=== PATIENT | female | born 1980 | race American Indian/Alaskan Native ===

== ENCOUNTER 2020-01-08 09:25 | Emergency (ER) | payer OTHER ==
[2020-01-08] MEDS ORDERED: ASPIRIN 325 MG TAB PO ONE (09:49)
[2020-01-08 10:05] LABS: Basophils % (Auto) 0.3 % (0.0-1.8); Eosinophils % (Auto) 0.8 % (0.0-4.3); Hematocrit 28.2 % (30.3-42.9); Hemoglobin 8.9 gm/dl (10.1-14.3); Lymphocytes # (Auto) 0.8 K/mm3 (1.2-5.4); Lymphocytes % (Auto) 18.7 % (13.4-35.0); Mean Corpuscular HGB Conc 32 % (30-34); Monocytes # (Auto) 0.4 K/mm3 (0.0-0.8); Monocytes % (Auto) 9.3 % (0.0-7.3); Platelet Count 501 K/mm3 (140-440); Red Blood Count 4.48 M/mm3 (3.65-5.03)
[2020-01-08 10:08] LABS: Mean Corpuscular Volume 63 fl (79-97); Red Cell Distribution Width 21.5 % (13.2-15.2)
--- NOTE | 2020-01-08 10:16 | XRay Report ---
CHEST 1 VIEW INDICATION: Chest Pain. COMPARISON: None FINDINGS: SUPPORT DEVICES: None. HEART: Within normal limits. LUNGS/PLEURA: No acute air space or interstitial disease. ADDITIONAL FINDINGS: None. IMPRESSION: 1. No acute findings. Signer Name: Ronald Palmer MD Signed: 01/08/2020 10:11 AM Workstation Name: [id number]
[2020-01-08 10:25] LABS: BUN/Creatinine Ratio 17; Blood Urea Nitrogen 15 mg/dL (7-17); Calcium 8.7 mg/dL (8.4-10.2); Hemolysis Index 0
--- NOTE | 2020-01-08 10:39 | Emergency Department Report ---
ED Chest Pain HPI - General Chief Complaint: Chest Pain Stated Complaint: CHEST PAIN Time Seen by Provider: 01/08/20 10:37 Source: patient Mode of arrival: Ambulatory Limitations: No Limitations - History of Present Illness Initial Comments: This is a 39-year-old female who arrives with a plethora of complaints. Chief among which is recurrent chest pain that she has had for years. This is the reason why she came to the emergency department she states because she has not had it for a while. She has been previously told it was musculoskeletal in yung ure. Indeed I have spoken to the [place] physician who informs me that the patient had a cardiac CT with a calcium score of 0 and a normal echo, EF of 55 with a nonspecific treadmill test. In addition the last hemoglobin of the patient was 8.8. The patient describes a small area of substernal soreness which he says is tender to the touch and tender on movement. She does not describe cough or sh ortness of breath. She has multiple other complaints ranging from a stubbed right toe to recurrent left-sided numbness which she does not have right now. In addition she tells me that she threw up blood last night. She states that there was no coffee-ground material but she did note a small amount of red material. She is not complaining of abdominal pain. Patient also states that she is anemic due to heavy periods and fibroids. MD Complaint: chest pain -: year(s) Onset: during rest Pain Location: substernal (Actually sternal) Pain Radiation: none Severity: moderate Quality: other (Soreness) Consistency: intermittent Improves With: nothing Worsens With: other (Touch or pressure) re: denies: nausea, vomting, diaphoresis, dyspnea, sense of impending doom Other Symptoms: other (See above). denies: cough, fever, syncope, rash, acid taste in mouth, leg swelling Aspirin use within the Past 7 Days: (0) No - Related Data Previous Rx's Medication Instructions Recorded Last Taken Type Ferrous Gluconate [Fergon 325 MG 325 mg PO TID #20 tablet 01/08/20 Unknown Rx tab] Lansoprazole 15 mg PO BID #20 capsule. 01/08/20 Unknown Rx traMADoL [Ultram] 50 mg PO Q6HR PRN #10 tablet 01/08/20 Unknown Rx Allergies Allergy/AdvReac Type Severity Reaction Status Date / Time No Known Allergies Allergy Unverified 01/08/20 09:48 Heart Score - HEART Score History: Slightly suspicious EKG: Normal Age: < 45 Risk factors: No known risk factors Troponin: < normal limit HEART Score: 0 - Critical Actions Critical Actions: 0-3 pts:0.9-1.7%risk of adverse cardiac event.Candidate for discharge ED Review of Systems ROS: Stated complaint: CHEST PAIN Other details as noted in HPI Constitutional: denies: chills, fever Eyes: denies: eye pain, vision change ENT: denies: ear pain, throat pain Respiratory: denies: cough, shortness of breath Cardiovascular: chest pain. denies: palpitations Endocrine: no symptoms reported Gastrointestinal: hematemesis. denies: abdominal pain, nausea, diarrhea Genitourinary: denies: urgency, dysuria Musculoskeletal: denies: back pain, arthralgia Skin: denies: rash, lesions Neurological: numbness (Recurrent for a long time involving her left side). denies: headache, weakness Psychiatric: other (Denies recent stressors. However, has history of anxiety disorder). denies: anxiety, depression Hematological/Lymphatic: denies: easy bleeding, easy bruising ED Past Medical Hx - Past Medical History Previous Medical History?: Yes Hx Psychiatric Treatment: Yes (Anxiety) Additional medical history: Miscarriage X5 - Surgical History Past Surgical History?: Yes - Social History Smoking Status: Unknown if ever smoked Substance Use Type: None - Medications Home Medications: Home Medications Medication Instructions Recorded Confirmed Last Taken Type Ferrous Gluconate [Fergon 325 MG 325 mg PO TID #20 tablet 01/08/20 Unknown Rx tab] Lansoprazole 15 mg PO BID #20 capsule. 01/08/20 Unknown Rx traMADoL [Ultram] 50 mg PO Q6HR PRN #10 tablet 01/08/20 Unknown Rx ED Physical Exam - General Limitations: No Limitations General appearance: alert, anxious - Head Head exam: Present: atraumatic, normocephalic - Eye Eye exam: Present: normal appearance. Absent: scleral icterus - ENT ENT exam: Present: mucous membranes moist - Neck Neck exam: Present: normal inspection. Absent: tenderness, meningismus - Respiratory Respiratory exam: Present: normal lung sounds bilaterally, chest wall tenderness (Reproducible sternal tenderness). Absent: respiratory distress - Cardiovascular Cardiovascular Exam: Present: regular rate, normal rhythm. Absent: systolic murmur, diastolic murmur, rubs, gallop - GI/Abdominal GI/Abdominal exam: Present: soft, normal bowel sounds. Absent: distended, tenderness, guarding, rebound, rigid - Extremities Exam Extremities exam: Present: normal inspection, other (Toe is not swollen there is no deformity) - Back Exam Back exam: Present: normal inspection - Neurological Exam Neurological exam: Present: alert, oriented X3 - Psychiatric Psychiatric exam: Present: normal affect, anxious - Skin Skin exam: Present: warm, dry, intact, normal color. Absent: rash ED Course Vital Signs 01/08/20 01/08/20 09:32 10:56 Pulse Rate 93 H 73 Respiratory 26 H 18 Rate Blood Pressure 127/88 Blood Pressure 120/83 [Left] O2 Sat by Pulse 100 100 Oximetry - Reevaluation(s) Reevaluation #1: Went over outpatient treatment plan and further evaluation as per Kam with patient. 01/08/20 11:15 LASHANW score - Lashawn Score Age > 65: (0) No Aspirin use within the Past 7 Days: (0) No 3 or more CAD Risk Factors: (0) No 2 or more Angina events in past 24 hrs: (0) No Known CAD with more than 50% Stenosis: (0) No Elevated Cardiac Markers: (0) No ST Deviation Greater than 0.5mm: (0) No LASHAWN Score: 0 ED Medical Decision Making - Lab Data Result diagrams: 01/08/20 09:52 01/08/20 09:52 Laboratory Results - last 24 hr 01/08/20 01/08/20 09:52 09:52 WBC 4.5 RBC 4.48 Hgb 8.9 L Hct 28.2 L MCV 63 L MCH 20 L MCHC 32 RDW 21.5 H Plt Count 501 H Lymph % (Auto) 18.7 [place] % (Auto) 9.3 H Eos % (Auto) 0.8 Baso % (Auto) 0.3 Lymph # 0.8 L [place] # 0.4 Eos # 0.0 Baso # 0.0 Seg Neutrophils % 70.9 H Seg Neutrophils # 3.2 Sodium 137 Potassium 3.7 Chloride 102.3 Carbon Dioxide 21 L Anion Gap 17 BUN 15 Creatinine 0.9 Estimated GFR > 60 BUN/Creatinine Ratio 17 Glucose 105 H Calcium 8.7 Troponin T < 0.010 - EKG Data -: EKG Interpreted by Me EKG shows normal: sinus rhythm, axis, intervals, QRS complexes, ST-T waves Rate: normal - EKG Data Interpretation: nonspecific ST-T wave stephen, other (Consider left atrial abnormality) - Radiology Data Radiology results: report reviewed, image reviewed (Chest x-ray shows no acute finding) Critical care attestation.: If time is entered above; I have spent that time in minutes in the direct care of this critically ill patient, excluding procedure time. ED Disposition Clinical Impression: Musculoskeletal chest pain, Chronic anemia, Paresthesias Anxiety disorder Qualifiers: Anxiety disorder type: unspecified anxiety disorder Qualified Code(s): F41.9 - Anxiety disorder, unspecified Disposition: TO HOME OR SELFCARE Is pt being admited?: No Does the pt Need Aspirin: No Condition: Stable Instructions: Chest Pain (ED), Costochondritis (ED), Iron Rich Diet (ED), Anemia (ED) Additional Instructions: [place] will be calling you tomorrow for appointment. Further evaluation per [facility] system. Return to the emergency department any acute change or problem. Prescriptions: Ferrous Gluconate [Fergon 325 MG tab] 325 mg PO TID #20 tablet Lansoprazole 15 mg PO BID #20 capsule. traMADoL [Ultram] 50 mg PO Q6HR PRN #10 tablet PRN Reason: Pain Referrals: PRIMARY CARE, [Primary Care Provider] - 3-5 Days Time of Disposition: 11:17
[2020-01-08] MEDS ORDERED: traMADol 50 MG TAB PO ONE (11:18)
[2020-01-08 11:29] VITALS: BP 115/81
== END 2020-01-08 12:20 | disposition home or self-care (01) ==
LOC: ED 09:25
DX: F41.9 Anxiety disorder, unspecified (principal); D64.9 Anemia, unspecified; R20.2 Paresthesia of skin; R07.89 Other chest pain; Z79.899 Other long term (current) drug therapy
CPT/HCPCS: 36415; 71045; 80048; 84484; 85025; 93005

== ENCOUNTER 2020-05-28 00:51 | Observation (INO) | payer OTHER ==
[2020-05-28] MEDS ORDERED: ASPIRIN 325 MG TAB PO ONE (01:18)
[2020-05-28 01:31] LABS: BUN/Creatinine Ratio 15; Blood Urea Nitrogen 12 mg/dL (7-17); Calcium 8.7 mg/dL (8.4-10.2); Hemolysis Index 1
[2020-05-28 01:37] LABS: Basophils % (Auto) 0.4 % (0.0-1.8); Eosinophils # (Auto) 0.2 K/mm3 (0.0-0.4); Eosinophils % (Auto) 2.7 % (0.0-4.3); Hematocrit 31.4 % (30.3-42.9); Hemoglobin 10.2 gm/dl (10.1-14.3); Lymphocytes # (Auto) 1.1 K/mm3 (1.2-5.4); Lymphocytes % (Auto) 18.3 % (13.4-35.0); Mean Corpuscular HGB Conc 33 % (30-34); Mean Corpuscular Volume 78 fl (79-97); Monocytes # (Auto) 0.8 K/mm3 (0.0-0.8); Monocytes % (Auto) 13.2 % (0.0-7.3); Platelet Count 560 K/mm3 (140-440); Red Blood Count 4.01 M/mm3 (3.65-5.03); Red Cell Distribution Width 16.6 % (13.2-15.2)
--- NOTE | 2020-05-28 01:39 | XRay Report ---
CHEST 1 VIEW INDICATION / CLINICAL INFORMATION: Chest Pain. FINDINGS: SUPPORT DEVICES: None. HEART / MEDIASTINUM: No significant abnormality. LUNGS / PLEURA: No significant pulmonary or pleural abnormality. No pneumothorax. ADDITIONAL FINDINGS: No significant additional findings. IMPRESSION: 1. No acute findings. Signer Name: Troy Sweeney MD Signed: 05/28/2020 1:34 AM Workstation Name: [id number]
[2020-05-28] MEDS ORDERED: ONDANSETRON 4 MG/2 ML INJ IV ONE (03:36)
[2020-05-28] MEDS ORDERED: fentaNYL 100 MCG/2 ML INJ IV ONE (03:36)
[2020-05-28] MEDS ORDERED: NITROGLYCERIN 2% OINT 1 GM TP ONE (03:36)
--- NOTE | 2020-05-28 03:44 | Emergency Department Report ---
HPI - General Chief Complaint: Chest Pain Time Seen by Provider: 05/28/20 03:25 - [facility] HPI: Room 20 The patient is a 39-year-old female present with a chief complaint of chest pain. Patient states for the past 2 to 3 days she has had intermittent subste rnal chest pain described as a tightness. Patient admits to shortness of breath and nausea/vomiting with the pain but denies diaphoresis. Patient denies fever or cough. Patient admits to a pleuritic component. Patient currently gives her chest pain a score of 8-9/10. Patient states her last stress test occurred in 2019 but she is never had a cardiac catheterization ED Past Medical Hx - Past Medical History Previous Medical History?: Yes Additional medical history: SVT - Surgical History Past Surgical History?: Yes Additional Surgical History: Hysterectomy - Family History Family history: no significant - Social History Smoking Status: Never Smoker Substance Use Type: None (Denies illicit drug use) - Medications Home Medications: Home Medications Medication Instructions Recorded Confirmed Last Taken Type Ferrous Gluconate [Fergon 325 MG 325 mg PO TID #20 tablet 01/08/20 Unknown Rx tab] Lansoprazole 15 mg PO BID #20 capsule. 01/08/20 Unknown Rx traMADoL [Ultram] 50 mg PO Q6HR PRN #10 tablet 01/08/20 Unknown Rx ED Review of Systems ROS: Stated complaint: CHEST PAIN Other details as noted in HPI Constitutional: denies: diaphoresis Eyes: denies: eye pain ENT: denies: throat pain Respiratory: shortness of breath Cardiovascular: chest pain Endocrine: no symptoms reported Gastrointestinal: nausea, vomiting Genitourinary: denies: dysuria Musculoskeletal: denies: back pain Neurological: denies: headache Physical Exam - Physical Exam Vital Signs: Vital Signs 05/28/20 01:25 EDT Temperature 98.5 F Pulse Rate 89 Respiratory 18 Rate Blood Pressure 131/82 [Left] O2 Sat by Pulse 100 Oximetry Physical Exam: GENERAL: The patient is well-developed well-nourished female lying on stretcher not appearing to be in acute distress. [] HEENT: Normocephalic. Atraumatic. Extraocular motions are intact. Patient has moist mucous membranes. NECK: Supple. Trachea midline CHEST/LUNGS: Clear to auscultation. There is no respiratory distress noted. HEART/CARDIOVASCULAR: Regular. There is no tachycardia. There is no gallop rub or murmur. ABDOMEN: Abdomen is soft, nontender. Patient has normal bowel sounds. There is no abdominal distention. SKIN: There is no rash. There is no edema. There is no diaphoresis. NEURO: The patient is awake, alert, and oriented. The patient is cooperative. The patient has normal speech MUSCULOSKELETAL: There is no evidence of acute injury. ED Course Vital Signs 05/28/20 01:25 EDT Temperature 98.5 F Pulse Rate 89 Respiratory 18 Rate Blood Pressure 131/82 [Left] O2 Sat by Pulse 100 Oximetry - Consultations Consultation #1: 05/28/20 05:19 [facility]28[facility] 05:55 Case discussed with [facility] physician Dr. Millard to obs pt here at [facility] ED Medical Decision Making - Lab Data Result diagrams: 05/28/20 01:18 EST 05/28/20 01:18 EST Laboratory Tests 05/28/20 05/28/20 05/28/20 01:18 EST 01:18 EST 03:45 WBC 6.0 RBC 4.01 Hgb 10.2 Hct 31.4 MCV 78 L MCH 26 L MCHC 33 RDW 16.6 H Plt Count 560 H Lymph % (Auto) 18.3 [place] % (Auto) 13.2 H Eos % (Auto) 2.7 Baso % (Auto) 0.4 Lymph # (Auto) 1.1 L [place] # (Auto) 0.8 Eos # (Auto) 0.2 Baso # (Auto) 0.0 Seg Neutrophils % 65.4 Seg Neutrophils # 3.9 Sodium 139 Potassium 3.7 Chloride 100.9 Carbon Dioxide 25 Anion Gap 17 BUN 12 Creatinine 0.8 Estimated GFR > 60 BUN/Creatinine Ratio 15 Glucose 88 Calcium 8.7 Troponin T < 0.010 < 0.010 - EKG Data -: EKG Interpreted by Me EKG shows normal: sinus rhythm Rate: normal - EKG Data When compared to previous EKG there are: previous EKG unavailable Interpretation: normal EKG (No ischemic changes seen) - Radiology Data Radiology results: report reviewed (Chest x-ray, CT chest), image reviewed (Chest x-ray, CT chest) interpreted by me: Chest x-ray-no focal infiltrates, no pneumothorax, no foreign body seen [address] [place] [address] XRay Report Signed Patient: LUCIA ASH MR# : [id number] : 0 1980 Acct:[id number] Age/Sex: 39 / F ADM Date: 05/28/20 Loc: ED Attending Dr: Ordering Physician: SAM ANDERSON MD Date of Service: 05/28/20 Procedure(s): XR chest 1V ap Accession Number(s): [id number] cc: ED MD JUSTIN Fluoro Time In Minutes: CHEST 1 VIEW INDICATION / CLINICAL INFORMATION: Chest Pain. FINDINGS: SUPPORT DEVICES: None. HEART / MEDIASTINUM: No significant abnormality. LUNGS / PLEURA: No significant pulmonary or pleural abnormality. No pneumothorax. ADDITIONAL FINDINGS: No significant additional findings. IMPRESSION: 1. No acute findings. Signer Name: Troy Sweeney MD Signed: 05/28/2020 1:34 AM Workstation Name: [id number] Transcribed By: BC Dictated By: Troy Sweeney MD Electronically Authenticated By: Troy Sweeney MD Signed Date/Time: 05/28/20133 DD/ 3 TD/TT: [address] [address] Cat Scan Report Signed Patient: LUCIA ASH MR# : [id number] : 1980 Acct:[id number] Age/Sex: 39 / F ADM Date: 05/28/20 Loc: ED Attending Dr: Ordering Physician: GARRETT KAPLAN MD Date of Service: 05/28/20 Procedure(s): CT angio chest Accession Number(s): [id number] cc: GARRETT KAPLAN MD CTA CHEST WITH IV CONTRAST INDICATION: Chest pain. Acute onset chest pain and dyspnea TECHNIQUE: Axial CT images were obtained through the chest after injection of 100 mL IV contrast. 3 plane MIP reconstructions were produced. All CT scans at this location are performed using CT dose reduction for ALARA by means of automated exposure control. COMPARISON: None available. FINDINGS: PULMONARY ARTERIES: No pulmonary emboli. AORTA AND ARTERIES: No acute abnormality. MEDIASTINUM: No mass, lymphadenopathy or other significant abnormality. The heart is normal in size without a pericardial effusion. The trachea and main bronchi are patent and normal in caliber. LUNGS: No suspicious consolidation, nodule or mass. No pneumothorax or pleural effusion. ADDITIONAL FINDINGS: None. UPPER ABDOMEN: No acute findings. BONES: No significant osseous abnormality. IMPRESSION: 1. No CT evidence for pulmonary embolism. 2. No acute findings. Signer Name: Troy Sweeney MD Signed: 05/28/2020 4:46 AM Workstation Name: [id number] Transcribed By: BC Dictated By: Troy Sweeney MD Electronically Authenticated By: Troy Sweeney MD Signed Date/Time: 05/28/20445 DD/ 4 TD/TT: - Differential Diagnosis ACS, PE, pericarditis, GERD Critical care attestation.: If time is entered above; I have spent that time in minutes in the direct care of this critically ill patient, excluding procedure time. ED Disposition Clinical Impression: Chest pain Disposition: OP ADMIT IP TO THIS HOSP Is pt being admited?: Yes Does the pt Need Aspirin: Yes Condition: Fair Instructions: Chest Pain (ED) Referrals: KERRI VODAYTON MD YAKELIN [Primary Care Provider] - 3-5 Days Time of Disposition: 05:56 (Hospitalist paged (Dr Seymour)) HEART Score - HEART Score History: Highly suspicious EKG: Normal Age: < 45 Risk factors: 1-2 risk factors Troponin: Troponin T < 0.010 ng/mL (0.00-0.029) 05/28/20 03:45 Troponin: < normal limit HEART Score: 3
--- NOTE | 2020-05-28 04:51 | Cat Scan Report ---
CTA CHEST WITH IV CONTRAST INDICATION: Chest pain. Acute onset chest pain and dyspnea TECHNIQUE: Axial CT images were obtained through the chest after injection of 100 mL IV contrast. 3 plane MIP re constructions were produced. All CT scans at this location are performed using CT dose reduction for ALARA by means of automated exposure control. COMPARISON: None available. FINDINGS: PULMONARY ARTERIES: No pulmonary emboli. AORTA AND ARTERIES: No acute abnormality. MEDIASTINUM: No mass, lymphadenopathy or other significant abnormality. The heart is normal in size w ithout a pericardial effusion. The trachea and main bronchi are patent and normal in caliber. LUNGS: No suspicious consolidation, nodule or mass. No pneumothorax or pleural effusion. ADDITIONAL FINDINGS: None. UPPER ABDOMEN: No acute findings. BONES: No significant osseous abnormality. IMPRESSION: 1. No CT evidence for pulmonary embolism. 2. No acute findings. Signer Name: Troy Sweeney MD Signed: 05/28/2020 4:46 AM Workstation Name: [id number]
[2020-05-28] MEDS ORDERED: ASPIRIN 325 MG TAB ONE (05:24)
[2020-05-28] MEDS ORDERED: hydrALAZINE 20 MG/1 ML INJ IV PRN (08:56)
[2020-05-28] MEDS ORDERED: traMADol 50 MG TAB PO PRN (08:56)
[2020-05-28] MEDS ORDERED: ACETAMINOPHEN 325 MG TAB PO PRN (08:56)
--- NOTE | 2020-05-28 09:22 | History and Physical Report ---
<KENDALL CASSIDY - Last Filed: 05/28/20 15:51> History of Present Illness Date of examination: 05/28/20 Date of admission: 05/28/20 06:00 Chief complaint: chest pain History of present illness: The patient is a 39-year-old female present with a chief complaint of chest pain. Patient states for the past 2 to 3 days she has had intermittent substernal chest pain described as a tightness. Patient admits to shortness of breath and nausea/vomiting with the pain but denies diaphoresis. Patient denies fever or cough. Patient admits to a pleuritic component. Patient currently gives her chest pain a score of 8-9/10. Patient states her last stress test occurred in 2019 but she is never had a cardiac catheterization ED Work Up shows; Sodium 139, potassium 3.7, Cr 0.8, Serum Glucose 88, WBC 6.0, hemoglobin 10.2 and PLT 560, Troponin -negative times 3 CTA of the chest-Negative for PE Chest [id number] for acute finding Past History Past Medical History: GERD Medications and Allergies Allergies Allergy/AdvReac Type Severity Reaction Status Date / Time No Known Allergies Allergy Unverified 01/08/20 09:48 Home Medications Medication Instructions Recorded Confirmed Last Taken Type Ferrous Gluconate [Fergon 325 MG 325 mg PO TID #20 tablet 01/08/20 05/28/20 Unknown Rx tab] Lansoprazole 15 mg PO BID #20 capsule. 01/08/20 05/28/20 Unknown Rx traMADoL [Ultram] 50 mg PO Q6HR PRN #10 tablet 01/08/20 05/28/20 05/28/20 11:47 Rx Ibuprofen 600 mg PO PRN 05/28/20 05/28/20 Unknown History Morphine 15 mg PO PRN 05/28/20 05/28/20 Unknown History Nortriptyline 50 mg PO ONCE 05/28/20 05/28/20 05/28/20 History dilTIAZem 120 mg PO ONCE 05/28/20 05/28/20 05/28/20 History Active Meds: Active Medications Acetaminophen (Tylenol) 650 mg PO Q6H PRN PRN Reason: Pain, Mild (1-3) Aspirin (Baby Aspirin) 81 mg PO QDAY JOHNNIE Atorvastatin Calcium (Lipitor) 40 mg PO QHS JOHNNIE Famotidine (Pepcid) 20 mg PO BID JOHNNIE Hydralazine HCl (Apresoline) 10 mg IV Q6HR PRN PRN Reason: FOR SBP > target Sodium Chloride (Sodium Chloride Flush Syringe 10 Ml) 10 ml IV PRN PRN PRN Reason: LINE FLUSH Tramadol HCl (Ultram) 50 mg PO Q6H PRN PRN Reason: Pain, Moderate (4-6) Review of Systems Cardiovascular: chest pain (chest may not be cardiac origin-troponin negative- chest x-ray normal) Exam - Constitutional Vitals: Temp Pulse Resp BP Pulse Ox 97.9 F 69 19 116/70 99 05/28/20 07:23 05/28/20 08:11 05/28/20 08:11 05/28/20 08:11 05/28/20 08:11 General appearance: Present: mild distress, well-nourished - EENT Eyes: Present: PERRL ENT: hearing intact, clear oral mucosa - Neck Neck: Present: supple, normal ROM - Respiratory Respiratory effort: normal Respiratory: bilateral: CTA - Cardiovascular Heart Sounds: Present: S1 & S2. Absent: rub, click - Extremities Extremities: pulses symmetrical, No edema Peripheral Pulses: within normal limits - Abdominal General gastrointestinal: Present: soft, non-tender, non-distended, normal bowel sounds Female genitourinary: Present: normal - Integumentary Integumentary: Present: clear, warm, dry - Musculoskeletal Musculoskeletal: gait normal, strength equal bilaterally - Psychiatric Psychiatric: appropriate mood/affect, intact judgment & insight - Neurologic Neurologic: CNII-XII intact, moves all extremities - Allied Health Allied health notes reviewed: nursing HEART Score - HEART Score EKG: Normal Age: < 45 Risk factors: 1-2 risk factors Troponin: Troponin T < 0.010 ng/mL (0.00-0.029) 05/28/20 06:31 Troponin: < normal limit Results - Labs CBC & Chem 7: 05/28/20 14:30 05/28/20 14:30 Labs: Abnormal lab results 05/28/20 Range/Units 01:18 EST MCV 78 L (79-97) fl MCH 26 L (28-32) pg RDW 16.6 H (13.2-15.2) % Plt Count 560 H (140-440) K/mm3 [place] % (Auto) 13.2 H (0.0-7.3) % Lymph # (Auto) 1.1 L (1.2-5.4) K/mm3 Assessment and Plan - Patient Problems (1) Chest pain Current Visit: Yes Status: Acute Plan to address problem: Vest Front Presser consult-reviewed specialist note and reces chest pain likely secondary to costochondritis/GERD Patient is stable chest x-ray shows no acute cardiopulmonary process. Serum troponin levels are normal times 3 and twelve-lead EKG is normal. Statin and ASA and ibuprofen (2) Thrombocytosis Current Visit: Yes Status: Acute Plan to address problem: ? cause likely due to iron deficiency Check iron level Patient is on iron supplement at home Will resume home iron therapy (3) Shortness of breath Current Visit: Yes Status: Acute Plan to address problem: CTA of the chest -Negative for PE Chest x-ray-No acute finding (4) DVT prophylaxis Current Visit: Yes Status: Acute Plan to address problem: [place] <RUSSELL FERRERA - Last Filed: 05/29/20 07:06> History of Present Illness Date of admission: 05/28/20 06:00 Medications and Allergies Active Meds: Active Medications Acetaminophen (Tylenol) 650 mg PO Q6H PRN PRN Reason: Pain, Mild (1-3) Last Admin: 05/28/20 21:07 Dose: 650 mg Documented by: Aspirin (Baby Aspirin) 81 mg PO QDAY [facility] Atorvastatin Calcium (Lipitor) 40 mg PO QHS [facility] Last Admin: 05/28/20 21:06 Dose: 40 mg Documented by: Enoxaparin Sodium (Enoxaparin) 40 mg SUB-Q QDAY@1000 [facility] Last Admin: 05/28/20 11:24 Dose: 40 mg Documented by: Famotidine (Pepcid) 20 mg PO BID [facility] Last Admin: 05/28/20 21:06 Dose: 20 mg Documented by: Hydralazine HCl (Apresoline) 10 mg IV Q6HR PRN PRN Reason: FOR SBP > target Ibuprofen (Ibuprofen) 800 mg PO Q8H PRN PRN Reason: Pain, Mild (1-3) Last Admin: 05/28/20 19:41 Dose: 800 mg Documented by: Sodium Chloride (Sodium Chloride Flush Syringe 10 Ml) 10 ml IV PRN PRN PRN Reason: LINE FLUSH Tramadol HCl (Ultram) 50 mg PO Q6H PRN PRN Reason: Pain, Moderate (4-6) Last Admin: 05/28/20 11:22 Dose: 50 mg Documented by: Exam - Constitutional Vitals: Temp Pulse Resp BP Pulse Ox 98.5 F 85 18 125/73 98 05/29/20 04:07 05/29/20 04:07 05/29/20 04:07 05/29/20 04:07 05/29/20 04:07 HEART Score - HEART Score Troponin: Troponin T < 0.010 ng/mL (0.00-0.029) 05/28/20 14:30 Results - Labs CBC & Chem 7: 05/28/20 14:30 05/28/20 14:30 Labs: Abnormal lab results 05/28/20 05/28/20 05/28/20 Range/Units 14:30 14:30 14:30 Hct 29.1 L (30.3-42.9) % MCV 78 L (79-97) fl MCHC 35 H (30-34) % RDW 16.9 H (13.2-15.2) % Plt Count 555 H (140-440) K/mm3 [place] % (Auto) 12.6 H (0.0-7.3) % Lymph # (Auto) 1.1 L (1.2-5.4) K/mm3 PT 15.1 H (12.2-14.9) Sec. INR 1.16 H (0.87-1.13) APTT 37.9 H (24.2-36.6) Sec. Iron 36 L (37-170) ug/dL Urine WBC (Auto) (0.0-6.0) /HPF 05/28/20 Range/Units Unknown Hct (30.3-42.9) % MCV (79-97) fl MCHC (30-34) % RDW (13.2-15.2) % Plt Count (140-440) K/mm3 [place] % (Auto) (0.0-7.3) % Lymph # (Auto) (1.2-5.4) K/mm3 PT (12.2-14.9) Sec. INR (0.87-1.13) APTT (24.2-36.6) Sec. Iron (37-170) ug/dL Urine WBC (Auto) 16.0 H (0.0-6.0) /HPF Assessment and Plan I saw and evaluated the patient. I agree with the findings and the plan of care as documented in the Nurse Practitioner's~note, with the following corrections and additions.
[2020-05-28] MEDS ORDERED: ENOXAPARIN 30 MG/0.3 ML INJ SUB-Q SCH (10:00)
--- NOTE | 2020-05-28 10:57 | Consultation ---
History of Present Illness Consult date: 05/28/20 Consult reason: chest pain History of present illness: 39-year-old obese -Cong[place] female presenting with left precordial chest pain at rest. Her pain is nonexertional and she claims she has had this pain on and off for over 10 years. She was seen in the emergency room and admitted for further evaluation and management Past History Past Medical History: GERD Past Surgical History: denies: No surgical history Social history: Family history: CAD, hypertension Medications and Allergies Allergies Allergy/AdvReac Type Severity Reaction Status Date / Time No Known Allergies Allergy Unverified 01/08/20 09:48 Home Medications Medication Instructions Recorded Confirmed Last Taken Type Ferrous Gluconate [Fergon 325 MG 325 mg PO TID #20 tablet 01/08/20 Unknown Rx tab] Lansoprazole 15 mg PO BID #20 capsule. 01/08/20 Unknown Rx traMADoL [Ultram] 50 mg PO Q6HR PRN #10 tablet 01/08/20 Unknown Rx Active Meds: Active Medications Acetaminophen (Tylenol) 650 mg PO Q6H PRN PRN Reason: Pain, Mild (1-3) Aspirin (Baby Aspirin) 81 mg PO QDAY JOHNNIE Atorvastatin Calcium (Lipitor) 40 mg PO QHS JOHNNIE Enoxaparin Sodium (Enoxaparin) 40 mg SUB-Q QDAY@1000 JOHNNIE Famotidine (Pepcid) 20 mg PO BID JOHNNIE Hydralazine HCl (Apresoline) 10 mg IV Q6HR PRN PRN Reason: FOR SBP > target Sodium Chloride (Sodium Chloride Flush Syringe 10 Ml) 10 ml IV PRN PRN PRN Reason: LINE FLUSH Tramadol HCl (Ultram) 50 mg PO Q6H PRN PRN Reason: Pain, Moderate (4-6) Review of Systems Constitutional: no weight loss, no weight gain, no sweats, no anorexia, no fatigue, no weakness Ears, nose, mouth and throat: no deferred, no ear pain, no ear discharge, no tinnitis, no epistaxis, no bleeding gums, no dental pain Cardiovascular: no chest pain, no orthopnea, no edema, no shortness of breath, no dyspnea on exertion Respiratory: pleurisy, no cough, no cough with sputum, no shortness of breath, no dyspnea on exertion, no congestion, no wheezing Gastrointestinal: no abdominal pain, no nausea, no vomiting, no diarrhea, no constipation, no melena, no hematochezia Genitourinary Female: no dyspareunia, no dysmenorrhea, no pelvic pain Menstruation: no currently menstrual, no premenarcheal Rectal: no pain, no incontinence, no bleeding Musculoskeletal: no neck stiffness, no neck pain, no shooting arm pain, no low back pain Integumentary: no rash, no pruritis, no redness Neurological: no transient paralysis, no paralysis, no weakness, no parathesias, no numbness, no tingling Endocrine: no cold intolerance, no heat intolerance, no polyphagia, no excessive thirst, no polydipsia, no polyuria, no nocturia Hematologic/Lymphatic: no easy bruising, no easy bleeding Allergic/Immunologic: no urticaria, no allergic rhinitis, no wheezing Physical Examination Vital Signs Temp Pulse Resp BP Pulse Ox 98.5 F 89 18 131/82 100 05/28/20 01:25 EDT 05/28/20 01:25 EDT 05/28/20 01:25 EDT 05/28/20 01:25 EDT 05/28/20 01:25 EDT General appearance: no acute distress, obese HEENT: Positive: PERRL, Mucus Membranes Moist Neck: Positive: neck supple, trachea midline Cardiac: Positive: Reg Rate and Rhythm, S1/S2. Negative: Audible Murmur Lungs: Positive: clear to auscultation, Normal Breath Sounds, Other (palpable left precordial chest wall pains) Neuro: Positive: Grossly Intact Abdomen: Positive: Soft, Active Bowel Sounds. Negative: Tender, Distended Female genitourinary: deferred Skin: Positive: Clear Incision: Cardiac Cath Site Musculoskeletal: No Pain, Normal Range of Motion Extremities: Present: normal. Absent: edema Results 05/28/20 01:18 EST 05/28/20 01:18 EST CBC 05/28/20 Range/Units 01:18 EST WBC 6.0 (4.5-11.0) K/mm3 RBC 4.01 (3.65-5.03) M/mm3 Hgb 10.2 (10.1-14.3) gm/dl Hct 31.4 (30.3-42.9) % Plt Count 560 H (140-440) K/mm3 Lymph # (Auto) 1.1 L (1.2-5.4) K/mm3 [place] # (Auto) 0.8 (0.0-0.8) K/mm3 Eos # (Auto) 0.2 (0.0-0.4) K/mm3 Baso # (Auto) 0.0 (0.0-0.1) K/mm3 Comprehensive Metabolic Panel 05/28/20 Range/Units 01:18 EST Sodium 139 (137-145) mmol/L Potassium 3.7 (3.6-5.0) mmol/L Chloride 100.9 (98-107) mmol/L Carbon Dioxide 25 (22-30) mmol/L BUN 12 (7-17) mg/dL Creatinine 0.8 (0.6-1.2) mg/dL Glucose 88 (65-100) mg/dL Calcium 8.7 (8.4-10.2) mg/dL EKG interpretations - Telemetry EKG Rhythm: Sinus Rhythm - EKG Sinus rhythms and dysrhythmias: sinus rhythm Normal tracing: normal tracing Assessment and Plan 1. Atypical noncardiac chest pain likely secondary to costochondritis. 2. GERD Patient is stable chest x-ray shows no acute cardiopulmonary process. Serum troponin levels are normal and twelve-lead EKG is normal. Plan. Very low pretest probability for ischemic coronary artery disease recommend starting patient on nonsteroidal anti-inflammatory drugs like ibuprofen prescription strength
[2020-05-28] MEDS: FAMOTIDINE 20 MG TAB PO SCH ×2 (11:22→21:06)
[2020-05-28] MEDS: ENOXAPARIN 40 MG/0.4 ML INJ SUB-Q SCH (11:24)
[2020-05-28 15:08] LABS: Basophils % (Auto) 0.3 % (0.0-1.8); Eosinophils # (Auto) 0.2 K/mm3 (0.0-0.4); Eosinophils % (Auto) 2.8 % (0.0-4.3); Hematocrit 29.1 % (30.3-42.9); Hemoglobin 10.2 gm/dl (10.1-14.3); Lymphocytes # (Auto) 1.1 K/mm3 (1.2-5.4); Lymphocytes % (Auto) 20.6 % (13.4-35.0); Mean Corpuscular HGB Conc 35 % (30-34); Mean Corpuscular Volume 78 fl (79-97); Monocytes # (Auto) 0.7 K/mm3 (0.0-0.8); Monocytes % (Auto) 12.6 % (0.0-7.3); Platelet Count 555 K/mm3 (140-440); Red Blood Count 3.72 M/mm3 (3.65-5.03); Red Cell Distribution Width 16.9 % (13.2-15.2)
[2020-05-28 15:16] LABS: INR 1.16 (0.87-1.13)
[2020-05-28 15:17] LABS: Partial Thromboplastin Time 37.9 Sec. (24.2-36.6)
[2020-05-28 15:37] LABS: BUN/Creatinine Ratio 11; Blood Urea Nitrogen 9 mg/dL (7-17); Calcium 8.5 mg/dL (8.4-10.2); Chol/HDL Ratio 3.32 %; HDL Cholesterol 50 mg/dL (40-59); Hemolysis Index 3; Iron 36 ug/dL (37-170); LDL Cholesterol,Direct 108 mg/dL (50-130); Total Iron Binding Capacity 321 mcg/dL (250-450)
[2020-05-28 16:14] LABS: Bacteria,Urine 1+ /HPF (Negative); Bilirubin,Urine NEG (Negative); Blood,Urine MOD (Negative); Color,Urine Straw (Yellow); Protein,Urine <15 mg/dL mg/dL (Negative); Urobilinogen,Urine < 2.0 mg/dL (<2.0)
[2020-05-28] MEDS: IBUPROFEN 800 MG TAB PO PRN (19:41)
[2020-05-29] MEDS: FAMOTIDINE 20 MG TAB PO SCH (09:21)
[2020-05-29] MEDS: IBUPROFEN 800 MG TAB PO PRN (09:22)
[2020-05-29] MEDS: ENOXAPARIN 40 MG/0.4 ML INJ SUB-Q SCH (09:22)
[2020-05-29] MEDS ORDERED: ASPIRIN 81 MG TAB CHEW PO SCH (10:00)
--- NOTE | 2020-05-29 10:20 | Progress Note ---
Assessment and Plan - Patient Problems (1) Chest pain Current Visit: Yes Status: Acute Plan to address problem: Chest pain, costochondritis CTA chest - no evidence of PE Echocardiogram for cardiac assessment. Continue NSAIDS for musculoskeletal chest pain. Subjective Date of service: 05/29/20 Interval history: Patient is resting in bed and appears comfortable. Musculoskeletal chest pain has improved. Denies shortness of breath. Objective Vital Signs Temp Pulse Pulse Pulse Resp BP BP 05/29/20 08:21 98.0 F 75 20 115/61 05/29/20 04:07 98.5 F 85 18 125/73 05/28/20 23:00 74 05/28/20 22:54 98.0 F 74 16 105/58 05/28/20 22:00 68 20 L 20 05/28/20 21:07 20 05/28/20 20:41 20 05/28/20 19:10 97.4 F L 75 18 117/68 05/28/20 16:30 98.6 F 86 18 110/62 05/28/20 15:38 97 H Pulse Ox 05/29/20 08:21 99 05/29/20 04:07 98 05/28/20 23:00 05/28/20 22:54 98 05/28/20 22:00 05/28/20 21:07 05/28/20 20:41 05/28/20 19:10 97 05/28/20 16:30 100 05/28/20 15:38 - Physical Examination General: No Apparent Distress HEENT: Positive: PERRL Neck: Positive: neck supple Cardiac: Positive: Reg Rate and Rhythm Lungs: Positive: Normal Breath Sounds Neuro: Positive: Grossly Intact Abdomen: Positive: Soft, Active Bowel Sounds Extremities: Absent: edema - Labs and Meds Coagulation 05/28/20 Range/Units 14:30 PT 15.1 H (12.2-14.9) Sec. INR 1.16 H (0.87-1.13) APTT 37.9 H (24.2-36.6) Sec. Lipids 05/28/20 Range/Units 14:30 Triglycerides 83 (2-149) mg/dL Cholesterol 166 (50-199) mg/dL HDL Cholesterol 50 (40-59) mg/dL Cholesterol/HDL Ratio 3.32 % CBC 05/28/20 Range/Units 14:30 WBC 5.5 (4.5-11.0) K/mm3 RBC 3.72 (3.65-5.03) M/mm3 Hgb 10.2 (10.1-14.3) gm/dl Hct 29.1 L (30.3-42.9) % Plt Count 555 H (140-440) K/mm3 Lymph # (Auto) 1.1 L (1.2-5.4) K/mm3 [place] # (Auto) 0.7 (0.0-0.8) K/mm3 Eos # (Auto) 0.2 (0.0-0.4) K/mm3 Baso # (Auto) 0.0 (0.0-0.1) K/mm3 Comprehensive Metabolic Panel 05/28/20 Range/Units 14:30 Sodium 138 (137-145) mmol/L Potassium 3.7 (3.6-5.0) mmol/L Chloride 102.7 (98-107) mmol/L Carbon Dioxide 25 (22-30) mmol/L BUN 9 (7-17) mg/dL Creatinine 0.8 (0.6-1.2) mg/dL Glucose 100 (65-100) mg/dL Calcium 8.5 (8.4-10.2) mg/dL Normal tracing: normal tracing
[2020-05-29 12:12] VITALS: BP 123/79
--- NOTE | 2020-05-29 12:16 | Discharge Summary ---
Providers - Providers Date of Admission: 05/28/20 06:00 Attending physician: RUSSELL FERRERA MD 05/28/20 Consult to Cardiac Rehabilitation [CONS] Routine Reason For Exam: Phase I 05/28/20 08:56 Consult to Cardiology [CONS] Routine Consulting Provider: XOCHILT ALEXANDER Reason For Exam: chest pain 05/28/20 09:45 Consult to Physician [CONS] Routine Comment: Consulting Provider: XOCHILT ALEXANDER Physician Instructions: Reason For Exam: chest pain [facility] Reason for admission: Atypical chest pain Condition: Fair Hospital course: The patient is a 39-year-old female present with a chief complaint of chest pain. Patient states for the past 2 to 3 days she has had intermittent substernal chest pain described as a tightness. Patient admits to shortness of breath and nausea/vomiting with the pain but denies diaphoresis. Patient denies fever or cough. Patient admits to a pleuritic component. Patient currently gives her chest pain a score of 8-9/10. Patient states her last stress test occurred in 2018 but she is never had a cardiac catheterization ED Work Up shows; Sodium 139, potassium 3.7, Cr 0.8, Serum Glucose 88, WBC 6.0, hemoglobin 10.2 and PLT 560, Troponin -negative times 3 CTA of the chest-Negative for PE Chest [id number] for acute finding Patient on evaluation had a palpable precordial left-sided chest pain. She states that this has been chronic but just worse the last 2 to 3 days prompting her to come to the hospital. She also has persistent ongoing intractable nausea and vomiting for which she is undergoing work-up outpatient with GI. Has an appointment this week. This morning her pain is much improved she was started on ibuprofen I did discuss with her the clinical correlation especially with NSAIDs considering possible GERD and recurrent intractable nausea and vomiting she verbalized understanding. She will be discharged to continue outpatient work-up with cardiology and also with her primary product promoter sales person. She follows with [facility] states that both the java sdet and the GI doctor with [facility]. During hospitalization she does appear not to focus on the person speaking to her I did discuss concern for anxiety as the nurse also noted anxious behaviors but she denies this. She is more calm today Atypical chest pain likely secondary to costochondritis Intractable nausea and vomiting GERD Thrombocytosis Acute respiratory failure likely secondary to underlying undiagnosed anxiety Anxiety disorder Disposition: DC-01 TO HOME OR SELFCARE Time spent for discharge: 35-minute Core Measure Documentation - Palliative Care Palliative Care/ Comfort Measures: Not Applicable - Core Measures Any of the following diagnoses?: none Exam - Physical Exam Narrative exam: VITAL SIGNS: Reviewed. GENERAL: The patient appears normally developed, Vital signs as documented. HEAD: No signs of head trauma. EYES: Pupils are equal. Extraocular motions intact. EARS: Hearing grossly intact. MOUTH: Oropharynx is normal. NECK: No adenopathy, no JVD. CHEST: Chest with clear breath sounds bilaterally. No wheezes, rales, or rhonchi. CARDIAC: Palpable chest wall pain regular rate and rhythm. S1 and S2, without murmurs, gallops, or rubs. VASCULAR: No Edema. Peripheral pulses normal and equal in all extremities. ABDOMEN: Soft, non tender and non distended. No rebound or guarding, and no masses palpated. Bowel Sounds normal. MUSCULOSKELETAL: Good range of motion of all major joints. Extremities without clubbing, cyanosis or edema. NEUROLOGIC EXAM: Alert and oriented x 3 No focal sensory or strength deficits. Speech normal. Follows commands. PSYCHIATRIC: Mood normal. SKIN: detail exam as documented in skin assessment - Constitutional Vitals: Temp Pulse Resp BP Pulse Ox 98.6 F 77 18 123/79 100 05/29/20 11:39 05/29/20 11:39 05/29/20 11:39 05/29/20 11:39 05/29/20 11:39 Plan Activity: advance as tolerated, fall precautions Diet: low fat Special Instructions: record daily weights, record daily BP diary Additional Instructions: Follow-up with [facility] product promoter sales person and java sdet within 1 week Follow up with: JULIANA ANTUNEZ MD [Primary Care Provider] - 3-5 Days Prescriptions: Ibuprofen [Motrin 800 MG tab] 800 mg PO Q8H PRN #20 tablet PRN Reason: Pain, Mild (1-3) Lansoprazole Solutab [Prevacid Solutab] 30 mg PO BID #60 tab Ondansetron [Zofran Odt] 4 mg PO Q6H #30 tab.ruth ann
== END 2020-05-29 16:16 | disposition home or self-care (01) ==
LOC: ED 00:51 → 4A 06:00
PROVIDERS: ADMIT Internal Medicine Geriatric Medicine; ATTEND Internal Medicine
DX: R07.9 Chest pain, unspecified (principal); R07.89 Other chest pain; D47.3 Essential (hemorrhagic) thrombocythemia; I47.1 Supraventricular tachycardia; K21.9 Gastro-esophageal reflux disease without esophagitis; R06.02 Shortness of breath; Z79.82 Long term (current) use of aspirin; Z90.710 Acquired absence of both cervix and uterus; Z79.899 Other long term (current) drug therapy
CPT/HCPCS: 36415; 71045; 71275; 80048; 80061; 81001; 83036; 83550; 83880; 84484; 85025; 85610; 85730; 87086; 93005; 93306; 96372; 96374; 96375; 99285; A9270; G0378; J1650; J2405; J3010; Q9967